=== PATIENT | male | born 1935 ===

== ENCOUNTER 2022-06-30 14:14 | Emergency (ER) ==
[~2022-06-30] VITALS: Ht 175.3 cm; Wt 72.6 kg
== END 2022-06-30 14:30 | disposition home or self-care (01) ==
LOC: ED 14:14
DX: F03.90 Unspecified dementia, unspecified severity, without behavioral disturbance, psychotic disturbance, mood disturbance, and anxiety (principal)
CPT/HCPCS: 99281